=== PATIENT | male | born 1945 | race Caucasian/White ===

== ENCOUNTER 2022-02-04 13:35 | Outpatient (CLI) | payer MEDICARE ==
[~2022-02-04] VITALS: Ht 175.3 cm; Wt 86.2 kg
[2022-02-04 14:56] LABS: BASOPHILS # (AUTO) 0.1 X10'3 (0-0.2); EOSINOPHILS # (AUTO) 0.2 X10'3 (0-0.9); EOSINOPHILS % (AUTO) 3.6 % (0-6); LYMPHOCYTES # (AUTO) 1.7 X10'3 (1.1-4.8); LYMPHOCYTES % (AUTO) 26.2 % (21-51); MEAN CORPUSCULAR HEMOGLOBIN 33.3 PG (27.0-31.0); MEAN CORPUSCULAR HGB CONC 33.9 g/dL (33.0-36.5); MEAN CORPUSCULAR VOLUME 98.1 FL (78-98); MEAN PLATELET VOLUME 8.1 FL (7.4-10.4); MONOCYTES # (AUTO) 0.6 X10'3 (0-0.9); NEUTROPHILS % (AUTO) 60.2 % (42-75); PRE OP HEMATOCRIT 45.2 % (42.0-52.0); PRE OP HEMOGLOBIN 15.3 g/dL (14.0-17.9); PRE OP PLATELET COUNT 189 X10'3 (140-440); RED BLOOD COUNT 4.61 X10'6 (4.70-6.10); RED CELL DISTRIBUTION WIDTH 13.6 % (11.5-14.5)
[2022-02-04 15:15] LABS: ALBUMIN 3.6 G/DL (3.4-5.0); ALBUMIN/GLOBULIN RATIO 1.1 (1.1-1.5); ALKALINE PHOSPHATASE 104 IU/L (46-116); BLOOD UREA NITROGEN 23 MG/DL (7-18); BUN/CREATININE RATIO 13.8 (5.4-32.0); CALCIUM 8.7 MG/DL (8.5-10.1); CHLORIDE 107 MMOL/L (99-107); CREATININE 1.67 MG/DL (0.60-1.10); PRE OP ALT 33 U/L (30-65); PRE OP ANION GAP 8 (8-16); PRE OP AST 26 U/L (10-37); PRE OP BILIRUB, TOTAL 0.6 MG/DL (0.0-1.0); PRE OP GLUCOSE 85 MG/DL (70-104); PRE OP POTASSIUM 4.4 MMOL/L (3.4-5.1); PRE OP SODIUM 143 MMOL/L (135-145); TOTAL CARBON DIOXIDE 27.7 MMOL/L (24-32); TOTAL PROTEIN 6.8 G/DL (6.4-8.2); eGFR 40 ML/MIN
[2022-02-04] MEDS ORDERED: SELE200C PO (16:33)
[2022-02-04] MEDS ORDERED: COLL1CAP PO (16:33)
[2022-02-04] MEDS ORDERED: ALLO300T8 PO (16:33)
[2022-02-04] MEDS ORDERED: CARV-50 PO (16:33)
[2022-02-04] MEDS ORDERED: ASPI-1265 PO (16:33)
[2022-02-04] MEDS ORDERED: MULT-1106 PO (16:33)
[2022-02-04] MEDS ORDERED: FAMO40TA58 PO (16:33)
[2022-02-04] MEDS ORDERED: MELO-100 PO (16:33)
[2022-02-04] MEDS ORDERED: ZET10T PO (16:33)
[2022-02-04] MEDS ORDERED: SIMV80TA2 PO (16:33)
[2022-02-06] MEDS ORDERED: SELE200T25 PO (11:50)
[2022-02-06] MEDS ORDERED: ASPI-1071 PO (11:50)
[2022-02-06] MEDS ORDERED: MULT-1085 PO (11:50)
[2022-02-09] MEDS ORDERED: ringers solution, lacted 1,000 ML IV SCH (05:00)
[2022-02-09] MEDS ORDERED: DOCUMENT DATE & TIME OF BETA-BLOCKER PO ONE (05:30)
[2022-02-09] MEDS ORDERED: tranexamic acid 650mg tablet PO ONE (05:30)
[2022-02-09] MEDS ORDERED: vancomycin 1,500 MG in NS 300ml IV soln IV ONE (05:30)
[2022-02-09] MEDS ORDERED: famotidine 20mg tablet PO ONE (05:30)
[2022-02-09] MEDS ORDERED: ceFAZolin inj. 2,000 MG in dextrose 5%-water 100 ML IV ONE (05:30)
== END 2022-02-04 23:59 | disposition home or self-care (01) ==
LOC: PRE-OP 13:35 → EDSTATUS 02-09 07:30
PROVIDERS: ATTEND Orthopaedic Surgery
DX: Z01.818 Encounter for other preprocedural examination (principal); S46.011A Strain of muscle(s) and tendon(s) of the rotator cuff of right shoulder, initial encounter; M19.011 Primary osteoarthritis, right shoulder; X58.XXXA Exposure to other specified factors, initial encounter; Y93.89 Activity, other specified; Y92.89 Other specified places as the place of occurrence of the external cause; Y99.8 Other external cause status; Z20.822 Contact with and (suspected) exposure to COVID-19
CPT/HCPCS: 36415; 80053; 85025; 87081; 87811; J0690; J3370; J7040; J7060; J7120

== ENCOUNTER 2022-03-26 07:57 | Inpatient (IN) | payer MEDICARE ==
[2022-03-23 16:51] LABS: BASOPHILS # (AUTO) 0.1 X10'3 (0-0.2); BASOPHILS % (AUTO) 0.7 % (0-1); EOSINOPHILS # (AUTO) 0.1 X10'3 (0-0.9); EOSINOPHILS % (AUTO) 1.7 % (0-6); LYMPHOCYTES # (AUTO) 1.9 X10'3 (1.1-4.8); LYMPHOCYTES % (AUTO) 24.2 % (21-51); MEAN CORPUSCULAR HEMOGLOBIN 33.1 PG (27.0-31.0); MEAN CORPUSCULAR HGB CONC 33.1 g/dL (33.0-36.5); MEAN PLATELET VOLUME 8.5 FL (7.4-10.4); MONOCYTES # (AUTO) 0.7 X10'3 (0-0.9); MONOCYTES % (AUTO) 9.3 % (2-12); NEUTROPHILS # (AUTO) 4.9 X10'3 (1.8-7.7); NEUTROPHILS % (AUTO) 64.1 % (42-75); PRE OP HEMATOCRIT 48.4 % (42.0-52.0); PRE OP PLATELET COUNT 210 X10'3 (140-440); RED BLOOD COUNT 4.84 X10'6 (4.70-6.10); RED CELL DISTRIBUTION WIDTH 13.8 % (11.5-14.5)
[2022-03-23 17:00] LABS: ALBUMIN 3.8 G/DL (3.4-5.0); ALBUMIN/GLOBULIN RATIO 1.2 (1.1-1.5); ALKALINE PHOSPHATASE 114 IU/L (46-116); BLOOD UREA NITROGEN 35 MG/DL (7-18); BUN/CREATININE RATIO 22.2 (5.4-32.0); CALCIUM 9.1 MG/DL (8.5-10.1); CHLORIDE 108 MMOL/L (99-107); CREATININE 1.58 MG/DL (0.60-1.10); PRE OP ALT 40 U/L (30-65); PRE OP ANION GAP 6 (8-16); PRE OP AST 27 U/L (10-37); PRE OP BILIRUB, TOTAL 0.5 MG/DL (0.0-1.0); PRE OP GLUCOSE 96 MG/DL (70-104); PRE OP POTASSIUM 4.4 MMOL/L (3.4-5.1); PRE OP SODIUM 143 MMOL/L (135-145); TOTAL CARBON DIOXIDE 29.5 MMOL/L (24-32); TOTAL PROTEIN 6.9 G/DL (6.4-8.2); eGFR 43 ML/MIN
[~2022-03-26] VITALS: Ht 175.3 cm; Wt 87.1 kg
[2022-03-26] VITALS (18 sets, daily range): BP systolic 141–161; BP diastolic 65–92
[~2022-03-26 07:57] MED LIST: ALLO300T8 PO; ASPI-1071 PO; CARV-50 PO; COLL1CAP PO; DOCUMENT DATE & TIME OF BETA-BLOCKER PO ONE; FAMO40TA58 PO; MELO-102 PO; MULT-1085 PO; SELE200T25 PO; SIMV80TA2 PO; ZET10T PO; ceFAZolin inj. 2,000 MG in dextrose 5%-water 100 ML IV ONE; famotidine 20mg tablet PO ONE; tranexamic acid 650mg tablet PO ONE; vancomycin 1,500 MG in NS 300ml IV soln IV ONE
--- NOTE | 2022-03-26 08:00 | NUR ---
PT PREPPED FOR SURGERY. PT STATES HE DID NOT READ THE INFORMATION PACKET OR WATCH A VIDEO ABOUT THE SURGERY BECAUSE HE WASNT DOING THE SURGERY DR CHAUHAN WAS. PT DID USE THE MURPURICIN OINTMENT AND SHOWERED WITH THE HIBACLENS SOAP FOR 5 DAYS WITH THE LAST DAY BEING THIS MORNING. PT HAS GOOD CMS, RADIAL PULSES ARE MARKED, PALPABLE AND STRONG BILATERAL EXTREMITIES ARE PINK WARM AND DRY. PT IS ABLE TO MOVE ALL EXTREMITIES WELL. PT WAS EDUCATED ON THE INCENTIVE SPIROMETRY USE AND WAS ABLE TO RETURN DEMONSTRATE USE OF THE MACHINE.
[2022-03-26] MEDS: ringers solution, lacted 1,000 ML IV SCH ×2 (09:26→19:28)
[2022-03-26] MEDS ORDERED: ondansetron/PF 4mg/2ml inj IV PRN ×2 (09:45→12:05)
[2022-03-26] MEDS ORDERED: morphine 2 MG/ML inj. syringe IV PRN (09:45)
[2022-03-26] MEDS ORDERED: fentaNYL/PF 50MCG/1 ML 2ML syringe IV PRN ×2 (09:45)
[2022-03-26] MEDS ORDERED: ringers solution, lacted 1,000 ML IV SCH (09:45)
[2022-03-26] MEDS ORDERED: ROPIVAcaine 0.2% (10 MG/5 ML) BOLUS INJECTION INTERSCALE PRN (09:45)
[2022-03-26] MEDS ORDERED: morphine 4 MG/ML inj SYRINge IV PRN (09:45)
[2022-03-26] MEDS ORDERED: labetalol 20mg/4ml (5mg/ml) syringe IV PRN (09:45)
[2022-03-26] MEDS ORDERED: hydrALAZINE 20mg/ml inj. IV PRN (09:45)
[2022-03-26] MEDS ORDERED: ROPIVAcaine 0.5% (5mg/ml) 30ml vial ONE ×2 (10:45→10:53)
[2022-03-26] MEDS ORDERED: LIDOcaine 2% (20mg/ml) 5ml vial ONE (10:48)
[2022-03-26] MEDS ORDERED: fentaNYL/PF 50MCG/1 ML 2ML syringe ONE (10:48)
[2022-03-26] MEDS ORDERED: dexamethasone sod phosphate 4mg/ml inj. ONE (10:49)
[2022-03-26] MEDS ORDERED: ondansetron/PF 4mg/2ml inj ONE (10:49)
[2022-03-26] MEDS ORDERED: propofol inj 20 ML IV ONE (10:49)
[2022-03-26] MEDS ORDERED: ketorolac trometh. 30mg/ml inj. ONE (10:53)
[2022-03-26] MEDS ORDERED: sevoflurane 250ml liquid IH ONE (11:22)
[2022-03-26] MEDS ORDERED: ePHEDrine 50MG/ML INJ. ONE (11:22)
[2022-03-26] MEDS ORDERED: diphenhydrAMINE 25mg capsule PO PRN ×2 (12:05)
[2022-03-26] MEDS ORDERED: oxyCODONE IR 5mg (immed. release) tablet PO PRN ×2 (12:05)
[2022-03-26] MEDS ORDERED: magnesium hydroxide 30ml (MOM) UD suspension PO PRN (12:05)
[2022-03-26] MEDS ORDERED: bisacodyl 10mg suppository rectal RC PRN (12:05)
[2022-03-26] MEDS ORDERED: acetaminophen 325mg tablet PO PRN (12:05)
[2022-03-26] MEDS ORDERED: pantoprazole 40mg Tablet.DR PO PRN (12:05)
[2022-03-26] MEDS ORDERED: naloxone 0.4 mg/ml inj IV PRN (12:05)
[2022-03-26] MEDS ORDERED: HYDROmorphone 1 mg/ml syringe IV PRN (12:05)
[2022-03-26] MEDS ORDERED: HYDROcodone/acetaminophen 10/325mg tab PO PRN ×2 (12:05)
[2022-03-26] MEDS ORDERED: acetaminophen 1,000mg/100ml IV 100 ML IV ONE (12:10)
--- NOTE | 2022-03-26 13:07 | NUR ---
Received from OR via HOSPITAL BED , accompanied by Anesthesiologist KENNA and report given by Anesthesiolgist. ARRIVES AWAKENING TO VERBAL STIMULI, NO DISTRESS, VSS, ON . SHOULDER IMOBILIZER INTACT WITH ICE IN PLACE, NO COMPLAINTS OF PAIN. Addendum: 03/26/22 at 1341 by Adrian Marx RN Amended: Links added.
[2022-03-26] MEDS ORDERED: ROPIVAcaine 0.2%/PF PUMP/bolus 545 ML INTERSCALE SCH (13:15)
[2022-03-26] MEDS: acetaminophen 325mg tablet PO SCH ×2 (14:00→19:51)
--- NOTE | 2022-03-26 14:10 | NUR ---
Patient in room PAS IN 900. I have received report from Adrian and had the opportunity to ask questions and assume patient care.
--- NOTE | 2022-03-26 15:05 | NUR ---
UNABLE TO DELIVER PT TO ROOM [facility]0A, ROOM IS NOT CLEAN YET. EVS AWARE AND COMING TO CLEAN. AWAITING CALL BACK FROM FLOOR ON ROOM BEING COMPLETED AND PT CAN BE DELIVERED THEN. Addendum: 03/26/22 at 1506 by Adrian Marx RN Amended: Links added.
--- NOTE | 2022-03-26 15:24 | NUR ---
ATTEMPTED TO DETERMINE STATUS OF ROOM 4020A IF CLEAN TO DELIVER PT, NOT CLEAN YET FOR ANOTHER 10 MINUTES. Addendum: 03/26/22 at 1535 by Adrian Marx RN Amended: Links added.
--- NOTE | 2022-03-26 15:35 | NUR ---
CALLED ORTHO FLOOR TO DETERMINE IF ROOM IS CLEAN YET, NO ANSWER. Addendum: 03/26/22 at 1536 by Adrian Marx RN Amended: Links added.
--- NOTE | 2022-03-26 15:37 | NUR ---
Report called to receiving nurse TIFFANI AT 14:07, AWAITING ROOM TO BE CLEANED. Transferred via HOSPITAL BED TO ROOM 4020A WITHOUT INCIDENT AT 15:37. CALL LIGHT WITHIN REACH AND BED IN LOCKED LOW POSITION. RECIEVING RN NOTIFIED PT ROOMED. Belongings BROUGHT TO PT'S ROOM. . Special Issues communicated to receiving nurse. Addendum: 03/26/22 at 1551 by Adrian Marx RN Amended: Links added.
[2022-03-26] MEDS: potassium cl 20mEq in 1/2 NS 1,000 ML IV SCH ×2 (18:00→20:05)
--- NOTE | 2022-03-26 18:00 | NUR ---
Patient in room ORTHO 4020. I have received report from LINDSEY Marie and had the opportunity to ask questions and assume patient care.
[2022-03-26] MEDS: carVEDilol 12.5mg tablet PO SCH (19:50)
[2022-03-26] MEDS: ceFAZolin/D5W- 1GM premix 50 ML IV SCH (19:50)
[2022-03-26] MEDS ORDERED: vancomycin/NS 1 GM ADD-VANTAGE 250 ML IV SCH (20:00)
[2022-03-26] MEDS ORDERED: sennosides 8.6mg tablet PO SCH (21:00)
[2022-03-27 02:00] VITALS: BP 138/86
[2022-03-27] MEDS: acetaminophen 325mg tablet PO SCH ×2 (02:00→07:53)
[2022-03-27] MEDS: ceFAZolin/D5W- 1GM premix 50 ML IV SCH (04:10)
[2022-03-27] MEDS: potassium cl 20mEq in 1/2 NS 1,000 ML IV SCH (04:32)
[2022-03-27 06:00] VITALS: BP 141/87
[2022-03-27 06:20] LABS: BASOPHILS % (AUTO) 0.1 % (0-1); EOSINOPHILS % (AUTO) 0 % (0-6); HEMATOCRIT 44.6 % (42.0-52.0); LYMPHOCYTES # (AUTO) 0.9 X10'3 (1.1-4.8); LYMPHOCYTES % (AUTO) 5.2 % (21-51); MEAN CORPUSCULAR HEMOGLOBIN 33.2 PG (27.0-31.0); MEAN CORPUSCULAR HGB CONC 33.7 g/dL (33.0-36.5); MEAN CORPUSCULAR VOLUME 98.7 FL (78-98); MEAN PLATELET VOLUME 8.8 FL (7.4-10.4); MONOCYTES # (AUTO) 0.6 X10'3 (0-0.9); MONOCYTES % (AUTO) 3.3 % (2-12); NEUTROPHILS # (AUTO) 16.1 X10'3 (1.8-7.7); NEUTROPHILS % (AUTO) 91.4 % (42-75); PLATELET COUNT 188 X10'3 (140-440); RED BLOOD COUNT 4.52 X10'6 (4.70-6.10); RED CELL DISTRIBUTION WIDTH 13.7 % (11.5-14.5); WHITE BLOOD COUNT 17.7 X10'3 (4.5-11.0)
--- NOTE | 2022-03-27 06:23 | NUR ---
Problems reprioritized. Patient report given, questions answered & plan of care reviewed with LINDSEY Marie.
[2022-03-27 06:46] LABS: ANION GAP 10 (8-16); CHLORIDE 106 MMOL/L (99-107); POTASSIUM 4.5 MMOL/L (3.5-5.1); SODIUM 138 MMOL/L (135-145); TOTAL CARBON DIOXIDE 22.3 MMOL/L (24-32)
[2022-03-27] MEDS: carVEDilol 12.5mg tablet PO SCH (07:53)
[2022-03-27] MEDS ORDERED: allopurinol 300 MG tablet PO SCH (08:00)
[2022-03-27] MEDS ORDERED: multivitamins, therapeutics tablet PO SCH (08:00)
[2022-03-27] MEDS ORDERED: atorvastatin 20mg tablet PO SCH (08:00)
[2022-03-27] MEDS ORDERED: SELENOMETHIONINE 200 MCG PO SCH (08:00)
[2022-03-27] MEDS ORDERED: ezetimibe 10mg tablet PO SCH (08:00)
[2022-03-27] MEDS ORDERED: MELOXICAM 7.5 MG TABLET PO SCH (08:00)
[2022-03-27] MEDS ORDERED: aspirin 325mg tablet PO SCH (08:30)
[2022-03-27 09:50] VITALS: BP 149/89
--- NOTE | 2022-03-27 12:34 | NUR ---
Joint surgery consult: Pt s/p R shoulder surgery this admit per EMR. Pt discharged prior to RD visit; written high protein diet ed w/ RD contact information mailed to pt home address provided in EMR. Addendum: 03/27/22 at [address] Amended: Links added.
[2022-03-28] MEDS ORDERED: acetaminophen 325mg tablet PO PRN (12:05)
== END 2022-03-27 10:00 | disposition home or self-care (01) | DRG 483 ==
LOC: PAS 07:57 → EDSTATUS 10:45 → PAS IN 12:08 → ORTHO 4S 16:29
PROVIDERS: ADMIT Orthopaedic Surgery; ATTEND Orthopaedic Surgery
PROC: 0LS30ZZ Reposition Right Upper Arm Tendon, Open Approach (ICD-10-PCS; 2022-03-26)
PROC: 3E0T3BZ Introduction of Anesthetic Agent into Peripheral Nerves and Plexi, Percutaneous Approach (ICD-10-PCS; 2022-03-26)
PROC: 3E0T33Z Introduction of Anti-inflammatory into Peripheral Nerves and Plexi, Percutaneous Approach (ICD-10-PCS; 2022-03-26)
PROC: 0RRJ00Z Replacement of Right Shoulder Joint with Reverse Ball and Socket Synthetic Substitute, Open Approach (ICD-10-PCS; principal; 2022-03-26 11:22)
DX: M19.011 Primary osteoarthritis, right shoulder (principal); S46.011A Strain of muscle(s) and tendon(s) of the rotator cuff of right shoulder, initial encounter; M65.811 Other synovitis and tenosynovitis, right shoulder; M75.21 Bicipital tendinitis, right shoulder
CPT/HCPCS: 36415; 80051; 80053; 82948; 85025; 87081; 97110; 97162; A4565; A4618; A7000; C1776; G0378; J0131; J0690; J1100; J1885; J2405; J2704; J2795; J3010; J3370; J3480; J3490; J7040; J7060; J7120